=== PATIENT | female | born 1990 | race Caucasian/White ===

== ENCOUNTER 2018-01-29 19:44 | Emergency (ER) | payer OTHER ==
[2018-01-29] MEDS ORDERED: DEXT10TA9 PO (19:59)
[2018-01-29] MEDS ORDERED: LAMO200T46 PO (20:00)
[2018-01-29 20:02] VITALS: BP 134/94
[2018-01-29] MEDS ORDERED: NS(*) 0.9% 1000 ML BAG 1,000 ML IV ONE (20:25)
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
[2018-01-29 21:06] LABS: PLATELET COUNT, AUTOMATED 293 K/uL (150-450)
--- NOTE | 2018-01-29 22:50 | EKG ---
[place] [facility] [place] SOFIA SHERWOOD : [id number] MR: [id number]: [id number] EXAM DATE: ORDERING PHYSICIAN: DEVIN ABERNATHY TECHNOLOGIST: MARILU Test Reason : TACHYCARDIA Blood Pressure : / mmHG Vent. Rate : 082 BPM Atrial Rate : 082 BPM P-R Int : 154 ms QRS Dur : 094 ms QT Int : 386 ms P-R-T Axes : 064 052 050 degrees QTc Int : 450 ms Normal sinus rhythm Possible Left atrial enlargement Borderline ECG No previous ECGs available Confirmed by FRANTZ LEMOS ([id number]) on 01/30/2018 6:50:33 AM Referred By: Confirmed By:FRANTZ LEMOS
== END 2018-01-29 22:12 | disposition home or self-care (01) ==
LOC: ER 19:53
DX: T65.93XA Toxic effect of unspecified substance, assault, initial encounter (principal); Y92.89 Other specified places as the place of occurrence of the external cause; R41.82 Altered mental status, unspecified
CPT/HCPCS: 80305; 80357; 80375; 81001; 82040; 82247; 82310; 82374; 82435; 82565; 82947; 84075; 84132; 84155; 84295; 84450; 84460; 84520; 85025; 93005; 99284